=== PATIENT | male | born 1935 | race Caucasian/White ===

== ENCOUNTER 2016-03-08 15:52 | Inpatient (IN) | payer MEDICARE, BC ==
[~2016-03-08] VITALS: Ht 182.9 cm; Wt 89.8 kg
[2016-03-08] MEDS ORDERED: DUONEB INH ONE ×2 (20:14)
[2016-03-08] MEDS ORDERED: METHYLPRED SOD SUCC 125 MG/2 ML VIAL ONE (20:44)
[2016-03-09] VITALS (7 sets, daily range): BP systolic 128–176; RESP 16–22; TEMP 95.9–98; Ht 182.9 cm; Wt 89.8 kg
[2016-03-09] MEDS ORDERED: AZITHROMYCIN 500 MG VIAL IV ONE (01:09)
[2016-03-09] MEDS ORDERED: CEFTRIAXONE 1 GM VIAL ONE (01:10)
[2016-03-09] MEDS ORDERED: SODIUM CHLORIDE 0.9% 250 ML IV ONE (01:11)
[2016-03-09] MEDS ORDERED: POTASSIUM CHLOR 10MEQ -ED ONLY 100 ML IV ONE (01:11)
[2016-03-09] MEDS ORDERED: SODIUM CHLORIDE 0.9% 100 ML IV ONE (01:11)
[2016-03-09] MEDS ORDERED: SODIUM CHLORIDE 0.9% 500 ML IV ONE (01:14)
[2016-03-09] MEDS ORDERED: ACETAMINOPHEN 325 MG TAB PO PRN (01:25)
[2016-03-09] MEDS ORDERED: ONDANSETRON 4 MG VIAL IV PUSH PRN (01:25)
[2016-03-09] MEDS ORDERED: ALPRAZOLAM 0.25 MG TAB PO PRN (01:25)
[2016-03-09] MEDS: DUONEB INH SCH ×6 (03:00→22:30)
[2016-03-09] MEDS ORDERED: MISSING DOSE XX ONE ×2 (08:30→11:10)
[2016-03-09] MEDS: METHYLPRED SOD SUCC 125 MG/2 ML VIAL IV SCH ×2 (08:40→15:50)
[2016-03-09] MEDS ORDERED: TRAMADOL 50 MG TAB PO PRN (09:25)
[2016-03-09] MEDS: CEFTRIAXONE 1 GM in SODIUM CHLORIDE 0.9% 50 ML IV SCH (09:28)
[2016-03-09] MEDS: KCL CR 20 MEQ TAB PO SCH ×3 (10:00→20:21)
[2016-03-09] MEDS: LISINOPRIL 20 MG TAB PO SCH (10:00)
[2016-03-09] MEDS ORDERED: Furosemide 100 MG/10 ML VIAL IV ONE (10:35)
[2016-03-09] MEDS: DICLOFENAC 75 MG TAB PO SCH (20:21)
[2016-03-09] MEDS: TIMOLOL 0.5% OP SOLN 5 ML EYE RT SCH (20:22)
[2016-03-09] MEDS: LATANOPROST OP SOLN EYE RT SCH (20:23)
[2016-03-10] MEDS: METHYLPRED SOD SUCC 125 MG/2 ML VIAL IV SCH ×3 (00:09→17:27)
[2016-03-10] MEDS: DUONEB INH SCH ×6 (02:35→22:49)
[2016-03-10 03:32] VITALS: BP_SYST 156; RESP 16; TEMP 97.8
[2016-03-10 07:11] VITALS: BP_SYST 144; RESP 16; TEMP 97.6
[2016-03-10] MEDS: CEFTRIAXONE 1 GM in SODIUM CHLORIDE 0.9% 50 ML IV SCH (08:05)
[2016-03-10] MEDS: LISINOPRIL 20 MG TAB PO SCH (08:05)
[2016-03-10] MEDS: BISOPROLOL PO SCH (08:05)
[2016-03-10] MEDS: HCTZ PO SCH (08:05)
[2016-03-10] MEDS: KCL CR 20 MEQ TAB PO SCH (08:06)
[2016-03-10 11:15] VITALS: BP_SYST 141; TEMP 97.9
[2016-03-10 15:44] VITALS: BP_SYST 132; RESP 18; TEMP 97.8
[2016-03-10 20:00] VITALS: BP_SYST 142; RESP 16; TEMP 97.5
[2016-03-10] MEDS: LATANOPROST OP SOLN EYE RT SCH (20:28)
[2016-03-10] MEDS: TIMOLOL 0.5% OP SOLN 5 ML EYE RT SCH (20:28)
[2016-03-10] MEDS: DICLOFENAC 75 MG TAB PO SCH (20:28)
[2016-03-10 23:05] VITALS: BP_SYST 155; RESP 16; TEMP 97.7
[2016-03-11] MEDS: METHYLPRED SOD SUCC 125 MG/2 ML VIAL IV SCH ×3 (00:07→17:18)
[2016-03-11] MEDS: DUONEB INH SCH ×6 (02:21→22:19)
[2016-03-11 03:35] VITALS: BP_SYST 126; RESP 18; TEMP 97.8
[2016-03-11 07:42] VITALS: BP_SYST 153; RESP 16; TEMP 97.9
[2016-03-11] MEDS: CEFTRIAXONE 1 GM in SODIUM CHLORIDE 0.9% 50 ML IV SCH (08:31)
[2016-03-11] MEDS: HCTZ PO SCH (08:32)
[2016-03-11] MEDS: BISOPROLOL PO SCH (08:32)
[2016-03-11] MEDS: LISINOPRIL 20 MG TAB PO SCH (08:32)
[2016-03-11 11:28] VITALS: BP_SYST 139; RESP 16; TEMP 98
[2016-03-11] MEDS ORDERED: Furosemide 40 MG/4 ML VIAL IV ONE (12:50)
[2016-03-11 19:42] VITALS: BP_SYST 157; RESP 20; TEMP 97.6
[2016-03-11] MEDS: DICLOFENAC 75 MG TAB PO SCH (20:18)
[2016-03-11] MEDS: TIMOLOL 0.5% OP SOLN 5 ML EYE RT SCH (20:18)
[2016-03-11] MEDS: LATANOPROST OP SOLN EYE RT SCH (20:19)
[2016-03-11 23:56] VITALS: BP_SYST 136; RESP 20; TEMP 98
[2016-03-12] MEDS: METHYLPRED SOD SUCC 125 MG/2 ML VIAL IV SCH ×4 (01:00→23:45)
[2016-03-12] MEDS: DUONEB INH SCH ×6 (02:25→23:25)
[2016-03-12 03:59] VITALS: BP_SYST 145; RESP 18; TEMP 98
[2016-03-12 07:37] VITALS: BP_SYST 169; RESP 16; TEMP 97.6
[2016-03-12] MEDS: LISINOPRIL 20 MG TAB PO SCH (08:08)
[2016-03-12] MEDS: BISOPROLOL PO SCH (08:08)
[2016-03-12] MEDS: CEFTRIAXONE 1 GM in SODIUM CHLORIDE 0.9% 50 ML IV SCH (08:08)
[2016-03-12] MEDS: HCTZ PO SCH (08:08)
[2016-03-12 11:13] VITALS: BP_SYST 154; RESP 18; TEMP 97.7
[2016-03-12 15:21] VITALS: BP_SYST 141; RESP 16; TEMP 97.6
[2016-03-12 19:41] VITALS: BP_SYST 157; RESP 20; TEMP 98.4
[2016-03-12] MEDS: DICLOFENAC 75 MG TAB PO SCH (19:54)
[2016-03-12] MEDS: TIMOLOL 0.5% OP SOLN 5 ML EYE RT SCH (19:55)
[2016-03-12] MEDS: LATANOPROST OP SOLN EYE RT SCH (19:55)
[2016-03-13 00:10] VITALS: BP_SYST 130; RESP 18; TEMP 98.2
[2016-03-13] MEDS: DUONEB INH SCH ×6 (02:38→22:58)
[2016-03-13 04:07] VITALS: BP_SYST 129; RESP 18; TEMP 97.9
[2016-03-13 07:25] VITALS: BP_SYST 158; RESP 16; TEMP 97.4
[2016-03-13] MEDS: HCTZ PO SCH (08:12)
[2016-03-13] MEDS: METHYLPRED SOD SUCC 125 MG/2 ML VIAL IV SCH ×2 (08:12→15:37)
[2016-03-13] MEDS: BISOPROLOL PO SCH (08:12)
[2016-03-13] MEDS: LISINOPRIL 20 MG TAB PO SCH (08:12)
[2016-03-13] MEDS ORDERED: MISSING DOSE XX ONE (08:20)
[2016-03-13] MEDS: CEFTRIAXONE 1 GM in SODIUM CHLORIDE 0.9% 50 ML IV SCH (08:55)
[2016-03-13 11:25] VITALS: BP_SYST 151; RESP 16; TEMP 97.2
[2016-03-13 19:44] VITALS: BP_SYST 160; RESP 20; TEMP 97.6
[2016-03-13] MEDS: TIMOLOL 0.5% OP SOLN 5 ML EYE RT SCH (20:52)
[2016-03-13] MEDS: DICLOFENAC 75 MG TAB PO SCH (20:52)
[2016-03-13] MEDS: LATANOPROST OP SOLN EYE RT SCH (20:53)
[2016-03-14 00:02] VITALS: BP_SYST 162; RESP 22; TEMP 97.3
[2016-03-14] MEDS: METHYLPRED SOD SUCC 125 MG/2 ML VIAL IV SCH ×2 (00:12→08:36)
[2016-03-14] MEDS: DUONEB INH SCH ×3 (02:49→10:36)
[2016-03-14 04:00] VITALS: BP_SYST 142; RESP 20; TEMP 97.5
[2016-03-14 08:07] VITALS: BP_SYST 172; RESP 18; TEMP 97.4
[2016-03-14] MEDS: HCTZ PO SCH (08:37)
[2016-03-14] MEDS: CEFTRIAXONE 1 GM in SODIUM CHLORIDE 0.9% 50 ML IV SCH (08:37)
[2016-03-14] MEDS: BISOPROLOL PO SCH (08:37)
[2016-03-14] MEDS: LISINOPRIL 20 MG TAB PO SCH (08:37)
[2016-03-14 11:34] VITALS: BP_SYST 163; RESP 20; TEMP 97.7
[2016-03-14 13:20] VITALS: BP_SYST 163; RESP 20; TEMP 97.7
== END 2016-03-14 14:38 | disposition home or self-care (01) | DRG 291 ==
LOC: ENRESERVDT → ENRESERVTM → ER 15:52 → EMR 03-09 01:06 → 4THE 03-09 03:56
PROVIDERS: ADMIT Internal Medicine Nephrology; ATTEND Internal Medicine Nephrology
CPT/HCPCS: 71010; 71020; 80048; 93005; 93306; 94640; 94799; 96365; 96366; 96367; 96375